=== PATIENT | male | born 2000 | race Caucasian/White ===

== ENCOUNTER 2023-01-31 11:48 | Inpatient (IN) ==
[2023-01-31] MEDS ORDERED: IOPAMIDOL 100 ML BOTTLE IV ONE (11:49)
[2023-01-31] MEDS ORDERED: ONDANSETRON 4 MG/2 ML VIAL IV PRN ×2 (12:00→21:00)
[2023-01-31] MEDS ORDERED: morphine 4 MG/ML VIAL IV PRN (12:00)
[2023-01-31] MEDS ORDERED: 0.9 % SODIUM CHLORIDE 1,000 ML IV ONE ×3 (12:00→16:59)
[2023-01-31 12:44] LABS: POC Calcium, Ionized 1.04 (1.16-1.32); POC Potassium 3.4 (3.3-5.1)
[2023-01-31 13:35] LABS: ALT/SGPT 195 U/L (<40); AST/SGOT 480 U/L (<40); Albumin 3.7 gm/dL (3.2-5.2); Alkaline Phosphatase 125 U/L (39-117); Bilirubin,Direct 1.2 mg/dL (<0.3); Bilirubin,Total 2.6 mg/dL (0.1-1.0); Globulin 3.6 gm/dL (2.2-3.7)
[2023-01-31 14:10] LABS: Monoscreen Negative (Negative)
[2023-01-31 14:19] LABS: Hepatitis A Antibody IgM Non-Reactive (Non-Reactive); Hepatitis B Surface Antigen Negative (Negative); Hepatitis C Virus Antibody Non-Reactive (Non-Reactive)
[2023-01-31] MEDS ORDERED: cefTRIAXone 2 GM in DEXTROSE 5% IN WATER 50 ML IV ONE (14:24)
[2023-01-31 14:32] LABS: Basophils # (Auto) 0.03 K/mcL (0.00-0.30); Basophils % (Auto) 0.2 % (0.0-2.0); Eosinophils # (Auto) 0.01 K/mcL (0.00-0.70); Eosinophils % (Auto) 0.1 % (0.0-7.0); Hematocrit 43.6 % (40.1-51.0); Lymphocytes # (Auto) 0.67 K/mcL (1.50-4.80); Lymphocytes % (Auto) 4.4 % (15.5-49.0); Mean Cell Volume 84.3 fL (80.0-100.0); Mean Corpuscular HGB Conc 34.4 g/dL (31.0-36.0); Mean Platelet Volume 12.8 fL (8.8-12.5); Monocytes # (Auto) 0.87 K/mcL (0.10-0.90); Monocytes % (Auto) 5.7 % (1.0-12.0); Neutrophils % (Auto) 88.6 % (38.0-78.0); Platelet Count 114 K/mcL (140-440); RBC 5.17 M/mcL (4.63-6.08); Red Cell Distribution Width 11.9 % (11.5-14.5); WBC 15.4 K/mcL (4.5-11.0)
[2023-01-31 14:41] LABS: Appearance,Urine CLEAR (Clear); Bilirubin,Urine Negative (Negative); Color,Urine YELLOW; Culture Indicated,Urine No; Glucose,Urine (UA) Negative (Negative); Ketones,Urine 5 mg/dL (Negative); Leukocyte Esterase,Urine Negative /uL (Negative); Mucus,Urine FEW /hpf; Nitrate,Urine Negative (Negative); Protein,Urine Negative (Negative); Urine RBC < 1 /hpf (0-3); Urine Squamous Epithelial Cell 0 /hpf (0-4); Urine WBC 2 /hpf (0-4)
[2023-01-31 16:44] LABS: Ferritin 522.4 ng/mL (30.0-400.0)
[2023-01-31] MEDS ORDERED: ACETAMINOPHEN 500 MG TABLET PO PRN ×2 (19:17→20:38)
[2023-01-31] MEDS: 0.9 % SODIUM CHLORIDE 1,000 ML IV SCH (19:43)
[2023-01-31] MEDS ORDERED: SENNOSIDES 1 TABLET PO PRN (21:00)
[2023-01-31] MEDS ORDERED: LACTULOSE 20 GM/30 ML ORAL.SOL PO PRN (21:00)
[2023-01-31] MEDS: DOCUSATE SODIUM 100 MG CAPSULE PO SCH (21:19)
[2023-01-31] MEDS: 0.9 % SODIUM CHLORIDE 10 ML SYRINGE IV SCH (21:28)
[2023-01-31] MEDS: LACTATED RINGERS 1,000 ML IV SCH (21:28)
[2023-01-31] MEDS: ACETAMINOPHEN 325 MG TABLET PO PRN (21:28)
[2023-01-31] MEDS: traZODone HCL 50 MG TABLET PO PRN (22:31)
[2023-01-31 22:40] LABS: Free T4 (Free Thyroxine) 0.94 ng/dL (0.93-1.70)
[2023-01-31 22:51] LABS: ALT/SGPT 167 U/L (<40); AST/SGOT 357 U/L (<40); Albumin 3.3 gm/dL (3.2-5.2); Alkaline Phosphatase 106 U/L (39-117); Blood Urea Nitrogen 7 mg/dL (6-20); Calcium 8.4 mg/dL (8.6-10.4); Carbon Dioxide 23 mmol/L (22-30); Chloride 101 mmol/L (96-108); Globulin 3.2 gm/dL (2.2-3.7); Glomerular Filtration Rate 119; Glucose 106 mg/dL (70-105); Thyroid Stimulating Hormone 3.49 uIU/mL (0.27-5.01)
[2023-02-01 00:29] LABS: Creatine Kinase > 20000 U/L (24-195); Creatine Kinase MB 3.7 ng/mL (<6.7)
[2023-02-01] MEDS: 0.9 % SODIUM CHLORIDE 1,000 ML IV SCH ×2 (01:00→05:43)
[2023-02-01] MEDS: LACTATED RINGERS 1,000 ML IV SCH ×4 (02:41→19:31)
[2023-02-01] MEDS: 0.9 % SODIUM CHLORIDE 10 ML SYRINGE IV SCH ×3 (05:18→20:46)
[2023-02-01 07:09] LABS: INR 1.2 (0.9-1.1); Prothrombin Time 15.3 sec (11.9-14.5)
[2023-02-01 07:14] LABS: ALT/SGPT 131 U/L (<40); AST/SGOT 261 U/L (<40); Albumin 2.9 gm/dL (3.2-5.2); Alkaline Phosphatase 90 U/L (39-117); Bilirubin,Total 1.5 mg/dL (0.1-1.0); Blood Urea Nitrogen 6 mg/dL (6-20); Calcium 8.2 mg/dL (8.6-10.4); Carbon Dioxide 23 mmol/L (22-30); Chloride 102 mmol/L (96-108); Globulin 2.8 gm/dL (2.2-3.7); Glomerular Filtration Rate 125; Glucose 97 mg/dL (70-105)
[2023-02-01] MEDS: DOCUSATE SODIUM 100 MG CAPSULE PO SCH ×2 (07:36→20:46)
[2023-02-01] MEDS: ACETAMINOPHEN 325 MG TABLET PO PRN ×3 (07:39→22:44)
[2023-02-01 08:00] LABS: Basophils # (Auto) 0.03 K/mcL (0.00-0.30); Basophils % (Auto) 0.3 % (0.0-2.0); Hematocrit 37.7 % (40.1-51.0); Hemoglobin 12.6 g/dL (13.7-17.5); Lymphocytes # (Auto) 0.35 K/mcL (1.50-4.80); Lymphocytes % (Auto) 3.4 % (15.5-49.0); Mean Cell Volume 87.5 fL (80.0-100.0); Mean Corpuscular HGB Conc 33.4 g/dL (31.0-36.0); Mean Platelet Volume 13.7 fL (8.8-12.5); Monocytes # (Auto) 0.75 K/mcL (0.10-0.90); Monocytes % (Auto) 7.3 % (1.0-12.0); Neutrophils % (Auto) 86.5 % (38.0-78.0); Platelet Count 101 K/mcL (140-440); RBC 4.31 M/mcL (4.63-6.08); Red Cell Distribution Width 12.4 % (11.5-14.5); WBC 10.2 K/mcL (4.5-11.0)
[2023-02-01 08:35] LABS: Creatine Kinase 17652 U/L (24-195)
[2023-02-01] MEDS ORDERED: oxyCODONE IR 5 MG TABLET PO SCH (14:22)
[2023-02-01 15:18] LABS: Creatine Kinase 17933 U/L (24-195)
[2023-02-01] MEDS: traZODone HCL 50 MG TABLET PO PRN (22:44)
[2023-02-02] MEDS: LACTATED RINGERS 1,000 ML IV SCH ×2 (00:20→05:06)
[2023-02-02] MEDS: 0.9 % SODIUM CHLORIDE 10 ML SYRINGE IV SCH (05:09)
[2023-02-02 06:14] LABS: INR 1.1 (0.9-1.1); Prothrombin Time 14.2 sec (11.9-14.5)
[2023-02-02 06:22] LABS: Basophils # (Auto) 0.02 K/mcL (0.00-0.30); Basophils % (Auto) 0.2 % (0.0-2.0); Eosinophils # (Auto) 0.33 K/mcL (0.00-0.70); Eosinophils % (Auto) 3.8 % (0.0-7.0); Hematocrit 38.8 % (40.1-51.0); Lymphocytes # (Auto) 0.82 K/mcL (1.50-4.80); Lymphocytes % (Auto) 9.5 % (15.5-49.0); Mean Cell Volume 86.6 fL (80.0-100.0); Mean Corpuscular HGB Conc 33.5 g/dL (31.0-36.0); Mean Platelet Volume 13.1 fL (8.8-12.5); Monocytes # (Auto) 0.59 K/mcL (0.10-0.90); Monocytes % (Auto) 6.9 % (1.0-12.0); Platelet Count 152 K/mcL (140-440); RBC 4.48 M/mcL (4.63-6.08); Red Cell Distribution Width 12.8 % (11.5-14.5); WBC 8.6 K/mcL (4.5-11.0)
[2023-02-02 06:27] LABS: ALT/SGPT 150 U/L (<40); AST/SGOT 226 U/L (<40); Albumin 2.9 gm/dL (3.2-5.2); Alkaline Phosphatase 106 U/L (39-117); Bilirubin,Total 0.9 mg/dL (0.1-1.0); Blood Urea Nitrogen 5 mg/dL (6-20); Calcium 8.6 mg/dL (8.6-10.4); Carbon Dioxide 26 mmol/L (22-30); Chloride 103 mmol/L (96-108); Globulin 2.8 gm/dL (2.2-3.7); Glomerular Filtration Rate 141; Glucose 95 mg/dL (70-105)
[2023-02-02 07:26] LABS: Creatine Kinase 10386 U/L (24-195)
[2023-02-02] MEDS: DOCUSATE SODIUM 100 MG CAPSULE PO SCH (07:38)
[2023-02-02 10:08] LABS: CMV IgM Antibody < 30.0 AU/mL (0.0-29.9); EBV Virus Capsid Ag IgG Ab <18.0 U/mL (0.0-17.9); EBV Virus Capsid Ag IgM Ab <36.0 U/mL (0.0-35.9)
[2023-02-04 15:20] LABS: Specimen Source SERUM
[2023-02-04 20:25] LABS: EPSTEIN BARR CAPSID IgG AB <18.00 U/mL; Epstein Barr Capsid IGM AB-SO <36.00 U/mL
[2023-02-05 16:47] LABS: CMV IgG Antibody < 0.60 U/mL
[2023-02-07 03:27] LABS: Actin (Smooth) Muscle AB IgG <20 U; Liver Kidney Microsomal AB IgG <20.0 U
== END 2023-02-02 10:17 | disposition home or self-care (01) | DRG 441 ==
LOC: ED 11:48 → ICU 19:54
PROVIDERS: ADMIT Student in an Organized Health Care Education/Training Program; ATTEND Student in an Organized Health Care Education/Training Program